=== PATIENT | male | born 1995 | race Asian ===

== ENCOUNTER 2021-12-30 21:31 | Emergency (ER) | payer OTHER ==
--- NOTE | 2021-12-30 22:47 | ED Physician Documentation ---
PD HPI UPPER EXT INJURY - Stated complaint Stated Complaint: L HAND LAC - Chief complaint Chief Complaint: Laceration - History obtained from History obtained from: Patient - Additonal information Additional information: Patient is a 26-year-old male presenting for evaluation of laceration to his left hand that just occurred. Patient was cutting a car part he had made with a 3D printer with a padded box sewer when he accidentally sliced his hand. His tetanus is up-to-date. He is right-hand dominant. He does not take a blood thinner. Review of Systems Constitutional: denies: Fever Cardiac: denies: Chest pain / pressure Respiratory: denies: Dyspnea GI: denies: Abdominal Pain Skin: reports: Laceration (s) Neurologic: denies: Headache PD PAST MEDICAL HISTORY - Past Medical History Past Medical History: No - Past Surgical History Past Surgical History: No - Present Medications Home Medications: Ambulatory Orders Medication Instructions Recorded Confirmed No Known Home Medications 12/30/21 12/30/21 - Allergies Allergies/Adverse Reactions: Allergies Allergy/AdvReac Type Severity Reaction Status Date / Time No Known Drug Allergies Allergy Verified 12/30/21 21:46 - Social History Does the pt smoke?: No Smoking Status: Never smoker Does the pt drink ETOH?: No Does the pt have substance abuse?: No - Immunizations Immunizations are current?: Yes - POLST Patient has POLST: No PD ED PE NORMAL - General General: Alert and oriented X 3, No acute distress, Well developed/nourished - HEENT HEENT: Atraumatic - Cardiac Cardiac: Strong equal pulses - Respiratory Respiratory: No respiratory distress - Derm Derm: Warm and dry - Extremities Extremities: No tenderness to palpate, Normal ROM s pain, Other (2 cm laceration to left thenar eminence; Normal range of motion at all joints; Brisk cap refill) Results - Vitals Vitals: Vital Signs - 24 hr 12/30/21 12/30/21 21:40 22:30 Temperature 36.1 C L 37.0 C Heart Rate 72 68 Respiratory 14 16 Rate Blood Pressure 125/70 116/70 O2 Saturation 98 99 Oxygen O2 Source Room air Procedures - Laceration (location) Left hand Length in cm: 2 Wound type: Linear, Clean Neurovascular status: Sensory intact, Motor intact, Vascular intact Tendon involvement: Tendon intact Anesthesia: Lidocaine 1% with epi Wound preparation: Hibiclens, Irrigated copiously NS Skin layer closure: Interrupted, Size #-0 - enter number (4), Sutures - enter # (4) Other: Patient tolerated well, No complications, Neurovascular intact, Dressing applied, Tetanus UTD PD MEDICAL DECISION MAKING - ED course ED course: Patient with laceration to left hand. Neurovascularly intact and no signs of tendon injury. Wound was cleaned and irrigated and closed with stitches. The patient was counseled regarding wound care as well as need to return for suture removal. He is advised on concerning symptoms to return for. His tetanus is up-to-date. Departure - Departure Disposition: Home, Self Care Clinical Impression: Laceration of left hand Qualifiers: Encounter type: initial encounter Foreign body presence: without foreign body Qualified Code(s): S61.412A - Laceration without foreign body of left hand, initial encounter Condition: Stable Instructions: ED Laceration Ext Sutr Stap Tape Comments: The laceration to your left hand was closed with 4 stitches. These should be removed in 1 week on January 06. You can return to the ER or [facility]. Please keep the wound clean and dry. You can shower but do not scrub at the wound.If you notice any worsening signs such as redness, abnormal drainage, increased pain or have any other concerns consider return to the ER sooner. Forms: Activity restrictions
[2021-12-30 22:52] VITALS: BP 114/63
== END 2021-12-30 22:52 | disposition home or self-care (01) ==
LOC: ED 21:31
DX: S61.412A Laceration without foreign body of left hand, initial encounter (principal); W27.8XXA Contact with other nonpowered hand tool, initial encounter; Y93.89 Activity, other specified
CPT/HCPCS: 12001; 99281

== ENCOUNTER 2023-01-13 21:19 | Emergency (ER) | payer OTHER ==
[2023-01-13] MEDS ORDERED: IBUPROFEN 800 MG TABLET PO STA (21:32)
--- NOTE | 2023-01-13 21:33 | ED Physician Documentation ---
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 He does not have a headache. Did not blackout. He is not nauseous. Knee pain is mild and he is able to walk on it. No other injuries. PD PAST MEDICAL HISTORY - Past Medical History Past Medical History: No - Past Surgical History Past Surgical History: No - Present Medications Home Medications: Ambulatory Orders Medication Instructions Recorded Confirmed No Known Home Medications 12/30/21 01/13/23 - Allergies Allergies/Adverse Reactions: Allergies Allergy/AdvReac Type Severity Reaction Status Date / Time No Known Drug Allergies Allergy Verified 01/13/23 21:22 - Social History Does the pt smoke?: No Smoking Status: Never smoker Does the pt drink ETOH?: No Does the pt have substance abuse?: No - Immunizations Immunizations are current?: Yes - POLST Patient has POLST: No PD ED PE NORMAL - Vitals Vital signs reviewed: Yes - General General: Alert and oriented X 3, No acute distress - HEENT HEENT: PERRL, EOMI - Neck Neck: Supple, no meningeal sign, No bony TTP - Derm Derm: Normal color, Warm and dry - Extremities Extremities: Other (He has full range of motion of the right knee but with some pain with extreme flexion. Mild tenderness over the patella. No ligamentous laxity of the ACL, PCL, LCL, MCL. No effusion.) - Neuro Neuro: Alert and oriented X 3, Normal speech Results - Vitals Vitals: Vital Signs - 24 hr 01/13/23 01/13/23 21:22 21:39 Temperature 36.6 C Heart Rate 81 Respiratory 16 16 Rate Blood Pressure 145/79 H 128/84 H O2 Saturation 98 93 Oxygen O2 Source Room air - Rads (name of study) 4v xr R knee- neg Relevant Findings:: Final report received, EMP independent interpretation of test PD Medical Decision Making - ED course ED course: 27-year-old gentleman who had a mechanical fall and hit his head. No indication for cranial imaging (no headache, no altered mental status, no intoxication, no focal neurofindings or complaints, no loss of consciousness) and right knee injury. Knee x-ray ordered but low pretest probability for bony injury given fairly minor findings on exam. Departure - Departure Disposition: 01 Home, Self Care Clinical Impression: Forehead contusion Qualifiers: Encounter type: initial encounter Qualified Code(s): S00.83XA - Contusion of o ther part of head, initial encounter Contusion of right knee Qualifiers: Encounter type: initial encounter Qualified Code(s): S80.01XA - Contusion of right knee, initial encounter Condition: Good Record reviewed to determine appropriate education?: Yes Instructions: ED Head Injury Closed Comments: Tylenol and/or ibuprofen as needed for pain. Return if you develop significant headache or other new or concerning symptoms. [place] Forms: PCP List, Activity restrictions Discharge Date/Time: 01/13/23 23:37
[2023-01-13 21:46] VITALS: BP 128/84; O2SAT 93
--- NOTE | 2023-01-13 23:40 | XRAY Report ---
PROCEDURE: Knee 4 View RT INDICATIONS: knee inj TECHNIQUE: 4 views of the knee were acquired. COMPARISON: None. FINDINGS: Bones: No acute fractures or dislocations. No suspicious bony lesions. Soft tissues: No knee joint effusion. No suspicious soft tissue calcifications. IMPRESSION: No acute osseous abnormality. If there is clinical concern or persistent symptoms, additional imaging such as repeat radiographs or advanced imaging (e.g. CT, MRI) may be helpful for further evaluation. Reviewed by: Payam Rodriguez MD on 01/13/2023 11:38 PM PST Approved by: Payam Rodriguez MD on 01/13/2023 11:38 PM PST Station ID: [id number]
== END 2023-01-13 23:37 | disposition home or self-care (01) ==
LOC: ED 21:19
DX: S00.83XA Contusion of other part of head, initial encounter (principal); S80.01XA Contusion of right knee, initial encounter; W01.198A Fall on same level from slipping, tripping and stumbling with subsequent striking against other object, initial encounter; Y93.89 Activity, other specified; Y92.138 Other place on military base as the place of occurrence of the external cause; Y99.1 Military activity
CPT/HCPCS: 73564; 99283; A9270